=== PATIENT | male | born 1995 | race Two or more races ===

== ENCOUNTER 2020-09-18 06:43 | Emergency (ER) | payer OTHER ==
[~2020-09-18] VITALS: Ht 175.3 cm; Wt 86.2 kg
--- NOTE | 2020-09-18 06:55 | NUR ---
ED Nurse Note: Pt came in to ER d/t weakness, pt verbalized, "i havent been eating and drinking over the past 3 days." Pt also complains of dizziness and chills, pt is AOx4, calm and cooperative to care, VSS, on RA, breathing even and unlabored, afebrile on triage. Placed on bed and gown.
[2020-09-18 07:31] VITALS: BP 123/86
--- NOTE | 2020-09-18 07:32 | NUR ---
ED Nurse Note: sandwiches and juices provided.
[2020-09-18 08:28] VITALS: BP 126/88
--- NOTE | 2020-09-18 08:28 | NUR ---
ER DISCHARGE NOTE: Patient is cleared to be discharged per ERMD, pt is aox4, on room air, with stable vital signs. pt was given dc and prescription instructions, pt was able to verbalize understanding, pt id band and iv site removed without complications. pt is able to ambulate with steady gait. pt took all belongings.
--- NOTE | 2020-09-18 09:13 | Emergency Room Report ---
History of Present Illness General Chief Complaint: Flu Like Symptoms Source: Patient Present Illness HPI 25-year-old male identifying his female presents for evaluation. States that she has had a cough for a few days. States she has a fever. No fever in ED. States she feels weak. Is hungry. Denies sick contacts or recent travel. No other aggravating relieving factors. 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 Patient History Past Medical History: none Past Surgical History: none Pertinent Family History: none Social History: Denies: smoking, alcohol use, drug use Now: No Immunizations: UTD Reviewed Nursing Documentation: PMH: Agreed; PSxH: Agreed Review of Systems All Other Systems: negative except mentioned in HPI Physical Exam Vital Signs Date Time Temp Pulse Resp B/P (MAP) Pulse Ox O2 Delivery O2 Flow Rate FiO2 09/18/20 06:48 97.9 83 16 123/86 (98) 96 Room Air Sp02 EP Interpretation: reviewed, normal General Appearance: no apparent distress, alert, GCS 15, non-toxic Head: normocephalic, atraumatic Eyes: bilateral eye normal inspection, bilateral eye PERRL ENT: hearing grossly normal, normal pharynx, no angioedema, normal voice Neck: full range of motion, supple/symm/no masses Respiratory: chest non-tender, lungs clear, normal breath sounds, speaking full sentences Cardiovascular #1: regular rate, rhythm, no edema Cardiovascular #2: 2+ carotid (R), 2+ carotid (L), 2+ radial (R), 2+ radial (L), 2+ dorsalis pedis (R), 2+ dorsalis pedis (L) Gastrointestinal: normal bowel sounds, non tender, soft, non-distended, no guarding, no rebound Rectal: deferred Genitourinary: normal inspection, no CVA tenderness Genitourinary: normal inspection, no CVA tenderness Musculoskeletal: back normal, normal range of motion, gait/station normal, non- tender Neurologic: alert, motor strength/tone normal, oriented x3, sensory intact, responsive, speech normal Psychiatric: judgement/insight normal, memory normal, mood/affect normal, no s uicidal/homicidal ideation Reflexes: 3+ bicep (R), 3+ bicep (L), 3+ tricep (R), 3+ tricep (L), 3+ knee (R) , 3+ knee (L) Lymphatic: no adenopathy Medical Decision Making Homeless Attestation I, The treating physician Dr. Roach, have assessed and agrees that patient is medically stable for discharge to an outpatient disposition. Diagnostic Impression: Primary Impression: Upper respiratory infection Qualified Codes: J06.9 - Acute upper respiratory infection, unspecified Additional Impression: Generalized weakness ER Course Hospital Course 25-year-old male identifying as female presenting with weakness, cough, subjective fever Differential diagnoses include: URI, pharyngitis, otitis media, influenza Clinical course Patient placed on stretcher. After initial history and physical I ordered IVFS She feels better after IV hydration. I discussed findings with patient. Physical exam unremarkable. Vitals stable. Not hypoxic. No indication for Covid testing at this time. Homeless checklist completed. Will provide referrals Diagnosis - URI, generalized weakness Stable and discharged home. drink plenty of fluids. Instructed to followup with PMD. Return to ED if symptoms recur or worsen Last Vital Signs Date Time Temp Pulse Resp B/P (MAP) Pulse Ox O2 Delivery O2 Flow Rate FiO2 09/18/20 08:28 97.9 84 17 126/88 98 Room Air Status: improved Disposition: HOME, SELF-CARE Condition: Improved Patient Instructions: Upper Respiratory Infection, Adult, Hgci-kn-Rihe Sampson Roach MD Sep 18, 2020 09:13
[2020-09-19] MEDS ORDERED: NAPHCON-A EYE D15 ML OP (03:33)
[2020-09-19] MEDS ORDERED: IBUPROFEN600 M1 ORAL (03:33)
[2020-09-19] MEDS ORDERED: BLEPH-105 ML OP (03:33)
== END 2020-09-18 08:28 | disposition home or self-care (01) ==
LOC: EDSEX → EMR 07:08
DX: J06.9 Acute upper respiratory infection, unspecified (principal); R53.1 Weakness
CPT/HCPCS: 96361; 96374; J2405; J7030; Z7502; 99284

== ENCOUNTER 2020-09-19 01:25 | Emergency (ER) | payer OTHER ==
[~2020-09-19] VITALS: Ht 175.3 cm; Wt 86.2 kg
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
[2020-09-19 02:05] VITALS: BP 131/87
--- NOTE | 2020-09-19 02:05 | NUR ---
ED Nurse Note: ERMD at bedside
[2020-09-19] MEDS: Azithromycin 250mg tab ORAL ONE (02:29)
[2020-09-19] MEDS: Lidocaine 1% 10mg/ml/Epi 0.005mg/ml 10ml INJ ONE (02:30)
[2020-09-19] MEDS: Lidocaine 1% MPF 10mg/ml 5ml INJ ONE (02:33)
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
[2020-09-19] MEDS ORDERED: IBUPROFEN600 M1 ORAL (03:33)
[2020-09-19] MEDS ORDERED: BLEPH-105 ML OP (03:33)
[2020-09-19] MEDS ORDERED: NAPHCON-A EYE D15 ML OP (03:33)
--- NOTE | 2020-09-19 04:32 | NUR ---
ER DISCHARGE NOTE: Patient is cleared to be discharged per ERMD, pt is aox4, on room air, with stable vital signs. pt was given dc and prescription instructions, pt was able to verbalize understanding, pt id band removed. pt is able to ambulate with steady gait. pt took all belongings. ride was booked for the patient going to [facility]
[2020-09-19 04:35] VITALS: BP 131/87
== END 2020-09-19 04:36 | disposition home or self-care (01) ==
LOC: EMR 02:07
DX: T76.21XA Adult sexual abuse, suspected, initial encounter (principal); H10.9 Unspecified conjunctivitis; J06.9 Acute upper respiratory infection, unspecified; B20 Human immunodeficiency virus [HIV] disease; F17.200 Nicotine dependence, unspecified, uncomplicated
CPT/HCPCS: 96372; J0696; Q0144; Z7502; 99283

== ENCOUNTER 2020-09-23 03:30 | Emergency (ER) | payer OTHER ==
[~2020-09-23] VITALS: Ht 175.3 cm; Wt 81.6 kg
[~2020-09-23 03:30] MED LIST: BLEPH-105 ML OP; IBUPROFEN600 M1 ORAL; NAPHCON-A EYE D15 ML OP
--- NOTE | 2020-09-23 03:36 | Emergency Room Report ---
History of Present Illness General Chief Complaint: To Be Triaged Source: Patient Present Illness HPI 25 year old Male identifying as female presents to ED with multiple complaints. First complaint is itchy rash and possible bug infestation to hands and feet. Patient thinks he has bugs from his home and it is worse in between the webbing of his fingers and toes. Second complaint is that she wants something to eat, specifically requesting "a peanut butter sandwich". Third request is to be treated for STDs. Patient states she is currently sexually active and has history of HIV on HAART therapy. Denies fever, chills, n/v/d, CP, SOB, KURTZ, neck/back pain, dysuria, hematuria, scrotal pain, or penile discharge. The patient's symptoms were gradual onset, severity was moderate, duration since several days . Quality: itchy Past medical history: HIV Past surgical history: Denies Smoking: Denies Alcohol use: Denies Drug use: Denies Review of systems: CONST: No fevers or chills, No night sweats PULMONARY: No productive cough, No shortness of breath CARDIAC: No chest pain, No palpitations GI: No vomiting, No diarrhea , No melena_or_BRBPR : No dysuria, No hematuria, No discharge NEURO: No new_focal_weakness_or_numbness, No confusion, No vision changes 14 point Review of Systems is otherwise negative except per HPI Physical Exam: GENERAL: Awake_alert_ nontoxic, no acute distress Spo2 98% on RA -normal EYES: Extraocular muscles are intact. Conjunctivae clear. Lids without swelling ENT: External nose and ear normal_in_appearance. Oropharynx clear. Head_atraumatic, Moist_oral_mucosa NECK: No JVD. No meningismus. No thyromegaly. Supple. Trachea midline RESP: Normal respiratory effort. Symmetric rise. No stridor. Clear_to_auscultation_No_rales_No_wheezes CARDIAC: Regular rate and regular rhytm. No_significant pedal edema. ABDOMEN: Soft. Nondistended. Nontender_No_rebound_or_guarding. EXAM: Offered exam, but patient DEFERRED. MSK: Normal muscle tone, without rigidity. Extremities without asymmetric deformity or swelling. SKIN: Linear burrows to the web spaces of dorsal hands bilaterally. No cellulitis, warmth or fusiform swelling. Warm and dry. No visible cyanosis or pallor NEUROLOGIC: Alert, oriented x3. Motor_and_sensation_grossly_intact. No truncal ataxia. Gait_normal Psych: Normal mood and affect, normal judgment and insight - COORDINATION OF CARE Case was discussed with: Patient Medical Decision Making/Plan: Ddx: scabies vs insect bite vs abscess vs cellulitis Patient is well-appearing and afebrile. She is smiling and laughing talking to her friend on the phone. Clinical exam consistent with uncomplicated scabies. Negative Nikolsky sign. No petechiae. Abdominal examination is benign. Patient is refusing p.o. examination. She states she would like to be treated empirically for STDs. She has history of HIV and reports that she is compliant with her current medication. A Personal Injury Paralegal consult was offered to the patient prior to discharge but the patient declined. All needs were met during this ED visit including food and water, change of clothes, fpc referral/resources, and transportation. Patient was provided turkey sandwich. Patient was empirically treated with ceftriaxone and azithromycin for chlamydia versus gonorrhea. Safe sex practices were discussed. Will DC with Rx for permethrin. Advised patient to wash all clothes, Bedding, and carpet to kill scabies mites. Pertinent results reviewed with the patient. I educated the patient on the current treatment plan including the risks, benefits, and alternatives. I also discussed the extent and limitations of the current evaluation. The patient expressed understanding and agreement with plan. I recommended PMD follow-up within 1-2 days. Also advised that the patient return to the Emergency Department as soon as possible if they experience any new, persistent, or worsening symptoms. Allergies: Coded Allergies: No Known Allergies (Unverified , 09/18/20) COVID-19 Screening Contact w/high risk pt: No Experienced COVID-19 symptoms?: No Physical Exam Sp02 EP Interpretation: reviewed, normal Medical Decision Making Diagnostic Impression: Primary Impression: Scabies Additional Impression: Sexually transmitted disease exposure Disposition: HOME, SELF-CARE Admit Decision Time: 03:50 Condition: Stable Scripts Diphenhydramine Hcl* (BENADRYL*) 25 Mg Capsule 25 MG ORAL Q6H PRN for Itching for 7 Days, #28 CAP Prov: Brandie Dhaliwal D.OStewart 09/23/20 Permethrin (Permethrin) 60 Gm Cream..g. 1 APPLIC TOPIC ONCE, #60 GM 0 Refills Prov: Brandie Dhaliwal D.O. 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 Use condoms for protection. Do not engage in sexual activity with infected partners. Do not apply permethrin to your face , Eyes, or mucous membranes. Wash all of your clothing, fabrics, carpets. Follow-up with your doctor sooner if your condition requires a more timely clinical reevaluation. Return to the emergency department immediately if you feel that your condition is worsening or if you have any new or concerning symptoms. Review your discharge instructions and take any prescriptions given as instructed. [facility] PROVIDES FREE OR LOW-COST HEALTH SERVICES TO PEOPLE WHO CAN SHOW PROOF THAT THEY LIVE IN [facility] [place]. TO FIND MORE CLINICS PARTNERED WITH [facility] TO PROVIDE SERVICE, PLEASE CALL . Brandie Dhaliwal D.O. Sep 23, 2020 03:36
[2020-09-23 03:45] VITALS: BP 138/84
--- NOTE | 2020-09-23 03:45 | NUR ---
ED Nurse Note: Recieved pt walk in from home, here with c/o rash to eliza area, pt was seen here last week for same reason and possible std and was treated, pt states wants more treatment, denies pain, no cp, no sob or labored breathing, no fevers or diarrhea, pt refuses to show only MD, will resume care as ordered and continue to closely monitor for any chagnes or increased distress.
[2020-09-23] MEDS ORDERED: ELIMITE 5% CREA60 GM TOPIC (03:51)
[2020-09-23] MEDS ORDERED: BENADRYL25 MG ORAL (03:51)
[2020-09-23] MEDS ORDERED: Azithromycin 250mg tab ORAL ONE (04:00)
[2020-09-23] MEDS ORDERED: Lidocaine 1% MPF 10mg/ml 5ml INJ ONE (04:00)
[2020-09-23 04:15] VITALS: BP 138/84
--- NOTE | 2020-09-23 04:15 | NUR ---
ER DISCHARGE NOTE: Patient is cleared to be discharged per ERMD, pt is aox4, on room air, with stable vital signs. pt was given dc and prescription instructions, pt was able to verbalize understanding, pt id band removed without complications. pt is able to ambulate with steady gait. pt took all belongings.
== END 2020-09-23 04:15 | disposition home or self-care (01) ==
LOC: EMR 03:42
DX: B86 Scabies (principal); Z20.2 Contact with and (suspected) exposure to infections with a predominantly sexual mode of transmission
CPT/HCPCS: 96372; J0696; Q0144; Z7502; 99283

== ENCOUNTER 2020-10-01 00:25 | Emergency (ER) | payer OTHER ==
[~2020-10-01] VITALS: Ht 177.8 cm; Wt 86.2 kg
[~2020-10-01 00:25] MED LIST changes: +BENADRYL25 MG ORAL; +ELIMITE 5% CREA60 GM TOPIC
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
[2020-10-01 00:40] VITALS: BP 120/73
[2020-10-01] MEDS ORDERED: PERMETHRIN60 GM TOPIC (00:55)
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
[2020-10-01 01:16] VITALS: BP 118/76
--- NOTE | 2020-10-01 01:16 | NUR ---
ER DISCHARGE NOTE: Patient is cleared to be discharged per ERMD, pt is aox4, on room air, with stable vital signs. pt was given dc and prescription instructions, pt was able to verbalize understanding, pt id band removed. pt is able to ambulate with steady gait. pt took all belongings.
== END 2020-10-01 01:16 | disposition home or self-care (01) ==
LOC: EMR 00:40
DX: B86 Scabies (principal); F40.218 Other animal type phobia
CPT/HCPCS: 99282

== ENCOUNTER 2020-10-14 21:22 | Emergency (ER) | payer OTHER ==
[~2020-10-14] VITALS: Ht 177.8 cm; Wt 88.5 kg
[~2020-10-14 21:22] MED LIST changes: +PERMETHRIN60 GM TOPIC
[2020-10-14 21:36] VITALS: BP 128/82
--- NOTE | 2020-10-14 21:36 | NUR ---
ED Nurse Note: pt presents to ED for treatment of STDs, ringworm and scabies. pt states that he/she was seen at a clinic and tested (+) for these but they did not give him/her any meds for it.
[2020-10-14] MEDS ORDERED: DOXYCYCLINE MO100 MG ORAL (21:39)
--- NOTE | 2020-10-14 21:39 | Emergency Room Report ---
History of Present Illness General Chief Complaint: Male Urogenital Problems Source: Patient Present Illness HPI Patient is a 25-year-old genetic male identifies as female who presents for scabies as well as possible sexually transmitted infection. Patient had recent treatment with permethrin. Reports having persistent infection. Denies any fever. Reports having increased genital discharge. Had recent reported diagnosis of gonorrhea chlamydia. 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: No Patient History Past Medical History: see triage record Reviewed Nursing Documentation: PMH: Agreed; PSxH: Agreed Review of Systems All Other Systems: negative except mentioned in HPI Physical Exam Vital Signs Date Time Temp Pulse Resp B/P (MAP) Pulse Ox O2 Delivery O2 Flow Rate FiO2 10/14/20 21:30 98.2 87 18 128/82 (97) 97 Room Air General Appearance: well appearing, no apparent distress, alert, GCS 15, non-t oxic Head: normocephalic, atraumatic ENT: hearing grossly normal, normal voice Neck: full range of motion, supple Respiratory: chest non-tender, no respiratory distress, speaking full sentences Cardiovascular #1: normal inspection Gastrointestinal: normal inspection Musculoskeletal: no calf tenderness Neurologic: normal gait Psychiatric: mood/affect normal Skin: no rash Medical Decision Making Diagnostic Impression: Primary Impression: Possible exposure to STD Additional Impression: Fear of parasites ER Course Patient presented for possible exposure to STD as well as scabies. Differential diagnosis include was not limited to scabies infection, STD, delusional parasitosis among others. Patient has a benign exam and does not appear to require any imaging or laboratory testing at this time. Patient was advised to have outpatient STD testing. He was empirically treated with Rocephin as well as doxycycline. He was given oral ivermectin due to reported history of scabies as well as worms. Patient was advised to follow-up with his infectious disease doctor. He was advised to return if any concerns. This medical record is generated with [employer] field support rep software. There may be some field support rep discrepancies related to use of this software Last Vital Signs Date Time Temp Pulse Resp B/P (MAP) Pulse Ox O2 Delivery O2 Flow Rate FiO2 10/14/20 21:30 98.2 87 18 128/82 (97) 97 Room Air Status: improved Disposition: HOME, SELF-CARE Condition: Stable Scripts Doxycycline Monohydrate* (DOXYCYCLINE MONOHYDRATE*) 100 Mg Capsule 100 MG ORAL Q12H, #14 CAP 0 Refills Prov: Ryan Sanchez MD 10/14/20 Referrals: BARRINGTON ARAUJO,REFERRING (PCP) Ryan Sanchez MD Oct 14, 2020 21:39
[2020-10-14] MEDS ORDERED: Lidocaine 1% MPF 10mg/ml 5ml INJ ONE (21:45)
[2020-10-14] MEDS ORDERED: cefTRIAXone 500mg Inj IM ONE (21:45)
[2020-10-14 22:09] VITALS: BP 128/82
== END 2020-10-14 22:10 | disposition home or self-care (01) ==
LOC: EMR 21:34
DX: Z20.2 Contact with and (suspected) exposure to infections with a predominantly sexual mode of transmission (principal)
CPT/HCPCS: 96372; J0696; Z7502; 99283

== ENCOUNTER 2020-10-18 01:45 | Emergency (ER) | payer OTHER ==
[~2020-10-18] VITALS: Ht 180.3 cm; Wt 86.2 kg
[~2020-10-18 01:45] MED LIST changes: +DOXYCYCLINE MO100 MG ORAL
[2020-10-18] MEDS ORDERED: metroNIDAZOLE 500mg tab ORAL ONE (02:15)
--- NOTE | 2020-10-18 02:23 | Emergency Room Report ---
History of Present Illness General Chief Complaint: General Complaint Source: Patient, Medical Record Present Illness HPI This is a 25-year-old male who wants to be referred as female. She presents with chief complaint of redness to the rectal and perineum area. Also complained of generalized itching. This is a chronic issue. She has been here multiple times for this already. She has a history of unprotected receptive anal sex with multiple partners. Also admits to drug use in methamphetamine, cocaine, ecstasy. Also believes that she has parasites in her stool. She has been here several times already. Received Rocephin and azithromycin in the past. Also with ivermectin and doxycycline. No fever chills but no nausea no vomiting. Nothing made it better. Itching made it worse. Now she believes that she has trichomonas she looked it up on the Internet. Allergies: Coded Allergies: No Known Allergies (Unverified , 09/18/20) COVID-19 Screening Contact w/high risk pt: No Experienced COVID-19 symptoms?: No COVID-19 Testing performed CLINICAL ENGINEER: No Patient History Past Medical History: see triage record, old chart reviewed Past Surgical History: none Pertinent Family History: none Social History: Reports: smoking, alcohol use, drug use Immunizations: other Reviewed Nursing Documentation: PMH: Agreed; PSxH: Agreed Review of Systems Eye: Denies: eye pain, blurred vision ENT: Denies: ear pain, nose congestion, throat swelling Respiratory: Denies: cough, shortness of breath Cardiovascular: Denies: chest pain, palpitations Gastrointestinal: Denies: abdominal pain, diarrhea, nausea, vomiting Musculoskeletal: Denies: back pain, joint pain Skin: Reports: other; Denies: rash Neurological: Denies: headache, numbness Endocrine: Denies: increased thirst, increased urine Hematologic/Lymphatic: Denies: easy bruising All Other Systems: negative except mentioned in HPI Physical Exam Vital Signs Date Time Temp Pulse Resp B/P (MAP) Pulse Ox O2 Delivery O2 Flow Rate FiO2 10/18/20 01:52 98.4 86 20 128/85 (99) 98 Room Air Vitals normal Sp02 EP Interpretation: reviewed, normal General Appearance: well appearing, no apparent distress, alert Head: normocephalic, atraumatic Eyes: bilateral eye PERRL, bilateral eye EOMI ENT: hearing grossly normal, normal pharynx Neck: full range of motion, supple, no meningismus Respiratory: chest non-tender, lungs clear, normal breath sounds Cardiovascular #1: regular rate, rhythm, no murmur Gastrointestinal: normal bowel sounds, non tender, no mass, no organomegaly, no bruit, non-distended Musculoskeletal: back normal, normal range of motion, gait/station normal Psychiatric: mood/affect normal Medical Decision Making Diagnostic Impression: Primary Impression: Fear of parasites Additional Impressions: Sexually transmitted disease exposure Polysubstance abuse ER Course this patient presents with anal redness and itching. This could be from STD or from sexual activity. 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 Patient wanted an IV washout but I see no indication for it. Her vital signs are stable. Not tachycardic. Last Vital Signs Date Time Temp Pulse Resp B/P (MAP) Pulse Ox O2 Delivery O2 Flow Rate FiO2 10/18/20 01:52 98.4 86 20 128/85 (99) 98 Room Air Status: improved Disposition: HOME, SELF-CARE Condition: Stable Additional Instructions: Abstain from drug use. Follow-up with your doctor in 7 days. Recommend outpatient testing for HIV, hepatitis and syphilis and other STDs. Return if symptoms worsen. Chandler Jarquin MD Oct 18, 2020 02:23
--- NOTE | 2020-10-18 02:39 | NUR ---
ED Nurse Note: REturned from break and resumed care, pt in bed awake and alert, walk in with c/o worms and itching all over his body, pt also states took meth and cocaine about 2 hours ago and "it got me tripping", pt denies cp or any pain, no sob or labored breathing, pt denies any other xomplaints, asked for food, given sandwich and juice, will monitor for med effectiveness and discharge.
[2020-10-18 02:42] VITALS: BP 128/85
[2020-10-18 02:43] VITALS: BP 128/85
== END 2020-10-18 02:44 | disposition home or self-care (01) ==
LOC: EMR 02:20
DX: F40.218 Other animal type phobia (principal); F15.10 Other stimulant abuse, uncomplicated; F14.10 Cocaine abuse, uncomplicated; F16.10 Hallucinogen abuse, uncomplicated; F10.10 Alcohol abuse, uncomplicated
CPT/HCPCS: 99282